=== PATIENT | female | born 1940 ===

== ENCOUNTER 2019-01-28 17:24 | Outpatient (CLI) | payer OTHER ==
[~2019-01-28 17:24] MED LIST: ULTRACET PO
== END 2019-01-28 17:59 | disposition home or self-care (01) ==
LOC: RAD 17:24
DX: R07.89 Other chest pain (principal)

== ENCOUNTER → 2019-01-29 08:24 | Outpatient (CLI) | payer OTHER | END | disposition home or self-care (01) | LOC: LAB 08:24 | DX: I11.9 Hypertensive heart disease without heart failure (principal) ==

== ENCOUNTER 2019-04-29 07:46 | Outpatient (CLI) | payer OTHER | END 2019-04-29 08:07 | disposition home or self-care (01) | LOC: NUCLEAR 07:46 | DX: J84.112 Idiopathic pulmonary fibrosis (principal); R94.31 Abnormal electrocardiogram [ECG] [EKG] ==

== ENCOUNTER → 2020-06-18 10:29 | Outpatient (CLI) | payer OTHER | END | disposition home or self-care (01) | LOC: T RESPIRAT 10:29 → LAB 10:29 | PROVIDERS: ATTEND Internal Medicine Pulmonary Disease | DX: R06.2 Wheezing (principal) ==

== ENCOUNTER 2021-12-15 18:48 | Inpatient (IN) | payer OTHER ==
[~2021-12-15] VITALS: Ht 167.6 cm; Wt 56.7 kg
[2021-12-19] MEDS ORDERED: NEOTUSS PLUS L474 ML (08:00)
[2021-12-19] MEDS ORDERED: LANSOPRAZOLE30 MG (08:00)
[2021-12-19] MEDS ORDERED: LORATADINE10 MG (08:00)
[2021-12-19] MEDS ORDERED: SERTRALINE HCL50 MG (08:01)
[2021-12-19] MEDS ORDERED: VALSARTAN-HCTZ1 EAC4 (08:01)
[2021-12-19] MEDS ORDERED: CETIRIZINE HCL10 MG (08:01)
[2021-12-19] MEDS ORDERED: GLIMEPIRIDE2 M1 (08:01)
[2021-12-19] MEDS ORDERED: ST. JOSEPH ASPI81 M2 (08:02)
[2021-12-19] MEDS ORDERED: BUDESONIDE-FO10.2 G1 (08:02)
[2021-12-19] MEDS ORDERED: ULTRACET (08:02)
== END 2021-12-27 17:50 | disposition home or self-care (01) | DRG 190 ==
LOC: ER 18:48 → ICU-2 12-16 08:54 → MEDJ 12-16 08:54
PROVIDERS: ADMIT Internal Medicine; ATTEND Internal Medicine
PROC: B24BZZZ Ultrasonography of Heart with Aorta (ICD-10-PCS; principal; 2021-12-16)
PROC: BW24YZZ Computerized Tomography (CT Scan) of Chest and Abdomen using Other Contrast (ICD-10-PCS; 2021-12-23)
DX: J43.8 Other emphysema (principal); J16.8 Pneumonia due to other specified infectious organisms; I50.31 Acute diastolic (congestive) heart failure; N39.0 Urinary tract infection, site not specified; Z16.12 Extended spectrum beta lactamase (ESBL) resistance; J81.1 Chronic pulmonary edema; R09.02 Hypoxemia; J84.10 Pulmonary fibrosis, unspecified; E11.9 Type 2 diabetes mellitus without complications; Z79.4 Long term (current) use of insulin; I27.20 Pulmonary hypertension, unspecified; I11.0 Hypertensive heart disease with heart failure; R06.02 Shortness of breath; B96.29 Other Escherichia coli [E. coli] as the cause of diseases classified elsewhere

== ENCOUNTER 2022-01-08 08:20 | Inpatient (IN) | payer OTHER ==
[~2022-01-08] VITALS: Ht 160 cm; Wt 56.7 kg
[~2022-01-08 08:20] MED LIST changes: +BUDESONIDE-FO10.2 G1; +CETIRIZINE HCL10 MG; +GLIMEPIRIDE2 M1; +LANSOPRAZOLE30 MG; +LORATADINE10 MG; +NEOTUSS PLUS L474 ML; +SERTRALINE HCL50 MG; +ST. JOSEPH ASPI81 M2; +ULTRACET; +VALSARTAN-HCTZ1 EAC4
[2022-01-08] MEDS ORDERED: MILLIPRED5 MG PO (08:36)
== END 2022-01-18 06:26 | disposition expired | DRG 189 ==
LOC: ER 08:20 → MEDI 15:49
PROVIDERS: ADMIT Internal Medicine; ATTEND Internal Medicine
PROC: 4A12X4Z Monitoring of Cardiac Electrical Activity, External Approach (ICD-10-PCS; 2022-01-08)
PROC: 5A09357 Assistance with Respiratory Ventilation, Less than 24 Consecutive Hours, Continuous Positive Airway Pressure (ICD-10-PCS; 2022-01-08)
PROC: 3E0F7GC Introduction of Other Therapeutic Substance into Respiratory Tract, Via Natural or Artificial Opening (ICD-10-PCS; 2022-01-08)
PROC: 3E0F7SF Introduction of Other Gas into Respiratory Tract, Via Natural or Artificial Opening (ICD-10-PCS; 2022-01-08)
PROC: 02HV33Z Insertion of Infusion Device into Superior Vena Cava, Percutaneous Approach (ICD-10-PCS; 2022-01-10)
PROC: BW24ZZZ Computerized Tomography (CT Scan) of Chest and Abdomen (ICD-10-PCS; principal; 2022-01-15)
DX: J96.21 Acute and chronic respiratory failure with hypoxia (principal); I50.33 Acute on chronic diastolic (congestive) heart failure; J44.1 Chronic obstructive pulmonary disease with (acute) exacerbation; I13.0 Hypertensive heart and chronic kidney disease with heart failure and stage 1 through stage 4 chronic kidney disease, or unspecified chronic kidney disease; I27.23 Pulmonary hypertension due to lung diseases and hypoxia; E11.22 Type 2 diabetes mellitus with diabetic chronic kidney disease; N18.9 Chronic kidney disease, unspecified; G47.39 Other sleep apnea; E87.5 Hyperkalemia; E86.0 Dehydration; G30.8 Other Alzheimer's disease; F02.80 Dementia in other diseases classified elsewhere, unspecified severity, without behavioral disturbance, psychotic disturbance, mood disturbance, and anxiety; Z74.01 Bed confinement status; Z20.822 Contact with and (suspected) exposure to COVID-19